=== PATIENT | male | born 1960 | race Caucasian/White ===

== ENCOUNTER 2017-01-29 10:52 | Day surgery (SDC) | payer OTHER ==
[2017-01-29] MEDS ORDERED: LACTATED RINGERS 1,000 ML IV ONE (12:20)
[2017-01-29] MEDS ORDERED: fentaNYL 250 MCG/5 ML VIAL IVP ONE (13:48)
[2017-01-29] MEDS ORDERED: MIDAZOLAM 2 MG/2 ML VIAL IVP ONE (13:48)
== END 2017-01-29 10:53 | disposition home or self-care (01) ==
PROC: 0DJD8ZZ Inspection of Lower Intestinal Tract, Via Natural or Artificial Opening Endoscopic (ICD-10-PCS; principal; 2017-01-29 12:15)
DX: Z12.11 Encounter for screening for malignant neoplasm of colon (principal); K57.30 Diverticulosis of large intestine without perforation or abscess without bleeding; E78.5 Hyperlipidemia, unspecified; I10 Essential (primary) hypertension; Z83.3 Family history of diabetes mellitus
CPT/HCPCS: 45378; 93005; J3010; J7120

== ENCOUNTER 2017-09-21 05:53 | Day surgery (SDC) | payer OTHER ==
[2017-09-21] MEDS ORDERED: LACTATED RINGERS 1,000 ML IV ONE ×3 (06:44→08:48)
--- NOTE | 2017-09-21 07:26 | HISTORY & PHYSICAL EXAMINATION ---
HPI - History of Present Illness HPI Comment/Other: Patient here for repair of elective incarcerated umbilical hernia containing fat. Current Meds: ATORVASTATIN CALCIUM 10 MG TABS (ATORVASTATIN CALCIUM) METOPROLOL TARTRATE 50 MG TABS (METOPROLOL TARTRATE) one tab po twice daily LISINOPRIL 20 MG TABS (LISINOPRIL) Take 1 tablet by mouth daily ASPIRIN 81 MG * GLUCOMETER TEST STRIPS use to check BS once daily * GLUCOMETER Check blood sugars once daily Allergies: Past Medical History: Reviewed history from 01/09/2017 and no changes required: NKDA Hyperlipidemia Hypertension Past Surgical History: Reviewed history from 01/09/2017 and no changes required: Unremarkable Family History Summary: Reviewed history Last on 03/03/2015 and no changes required:07/24/2017 Father () - Has Family History of Diabetes - Entered On: 01/09/2017 General Comments - FH: Mother: Alive, SE Father: age 65, melanoma, DMII 1 brother: Older, HTN Social History: Reviewed history from 03/31/2014 and no changes required: [employer] worker - job site superintendant. , 3 biological kids, 2 stepsons; one age 12. Quite a bit of stress with marriage secondary to the loss of his stepson at age 12 in 2006. Risk Factors: Smoked Tobacco Use: Never smoker Passive smoke exposure: no Caffeine use: 3 drinks per day Alcohol use: yes Type: beer Drinks per day: <1 Exercise: no Seatbelt use: 100 % Sun Exposure: occasionally Previous Tobacco Use: Signed On - 03/03/2015 Smoked Tobacco Use: Never smoker Passive smoke exposure: no Caffeine use: 3 drinks per day Problems were reviewed with the patient during this visit. Medications were reviewed with the patient during this visit. Allergies were reviewed with the patient during this visit. No known allergies. Physical Exam General: well developed, well nourished, in no acute distress Lungs: clear bilaterally to A & P Heart: regular rate and rhythm, S1, S2 without murmurs, rubs, gallops, or clicks Abdomen: Moderately sized incarcerated umbilical hernia. Non-tender to palpation. No surrounding skin changes. Protuberent abdomen Pulses: pulses normal in all 4 extremities Extremities: no clubbing, cyanosis, edema, or deformity noted with normal full range of motion of all joints Cervical Nodes: no significant adenopathy Psych: alert and cooperative; normal mood and affect; normal attention span and concentration Problems: Problems Added: 1) Dx of Umbilical hernia ([id number]) (ICD-553.1) Impression & Recommendations: Problem # 1: umbilical hernia Will proceed with umbilical hernia repair PMH/PSH - Past Medical History Cardiovascular: positive: Hypertension, High cholesterol, HI Respiratory: positive: None Endocrine/Autoimmune: positive: None GI: positive: None : positive: None HEENT: positive: None Psych: positive: None Musculoskeletal: positive: Osteoarthritis, Other Derm: positive: None MRSA Hx?: No - Past Surgical History General: positive: Colonoscopy Cardiovascular: positive: Cardiac catheterization Social & Family Hx - Social History Does the pt smoke?: No Smoking Status: Never smoker Does the pt drink ETOH?: Yes ETOH Use: Beer Does the pt have substance abuse?: No Meds/Allgy - Home Medications Home Medications: Ambulatory Orders Medication Instructions Recorded Confirmed Aspirin [Aspir-Low] 81 mg PO DAILY 03/03/16 09/08/17 Lisinopril 10 mg PO DAILY 03/03/16 09/08/17 Metoprolol Succinate 25 mg PO DAILY 03/03/16 09/08/17 Atorvastatin [Lipitor] 40 mg PO DAILY 01/29/17 09/08/17 - Allergies Allergies/Adverse Reactions: Allergies Allergy/AdvReac Type Severity Reaction Status Date / Time No Known Drug Allergies Allergy Verified 09/21/17 06:57 Exam - Vital Signs Vital Signs: Vital Signs x48h Temp Pulse Resp BP Pulse Ox 09/21/17 06:44 36.3 C L 68 14 129/83 H 97 Results - Lab Results Other Lab Results: Lab Results x24hrs 09/21/17 Range/Units 07:05 POC Whole Bld Glucose 138 H (70 - 100) mg/dL
[2017-09-21] MEDS ORDERED: ceFAZolin 2 GM/50 ML 2 GM/50 ML BAG IV ONE (07:28)
[2017-09-21] MEDS ORDERED: BUPIVACAINE 0.5% PF 30 ML VIAL INFIL ONE ×2 (07:35)
[2017-09-21] MEDS ORDERED: LIDOCAINE MPF 1%-EPI 1:200000 30 ML VIAL SUBQ ONE ×2 (07:35)
[2017-09-21] MEDS ORDERED: fentaNYL 100 MCG/2 ML VIAL IVP ONE (07:50)
[2017-09-21] MEDS ORDERED: ONDANSETRON 4 MG/2 ML VIAL IVP ONE (07:50)
[2017-09-21] MEDS ORDERED: MIDAZOLAM 2 MG/2 ML VIAL IVP ONE (07:50)
[2017-09-21] MEDS ORDERED: DEXAMETHASONE 4 MG/ML VIAL IVP ONE (07:50)
[2017-09-21] MEDS ORDERED: KETOROLAC 30 MG/ML VIAL IVP ONE (07:50)
[2017-09-21] MEDS ORDERED: LIDOCAINE-MPF 2% 5 ML VIAL IM ONE (07:50)
[2017-09-21] MEDS ORDERED: PROPOFOL 200 MG/20 ML VIAL IVP ONE (07:50)
[2017-09-21 09:26] VITALS: BP 122/70
--- NOTE | 2017-09-21 18:16 | OPERATIVE REPORT ---
DATE OF SURGERY: 09/21/2017 00:00:00 PREOPERATIVE DIAGNOSIS: POSTOPERATIVE DIAGNOSIS: NAME OF PROCEDURE: Umbilical hernia repair. SURGEON: Soledad Fields MD ANESTHESIA: INDICATION FOR PROCEDURE: This is a 57-year-old male with an incarcerated umbilical hernia containing fat, who was presenting for elective umbilical hernia repair. FINDINGS: After obtaining informed consent, the patient was brought into the operating room and posit ioned on the operating table in the supine position, taking note of pressure points. He was administe red perioperative antibiotics. He was intubated. He was prepped and draped in the usual sterile fashi on and a time-out was taken according to protocol. A supraumbilical 1.5 cm incision was created and d eepened down to the hernia sac. The hernia sac was noted to be very superficial in nature. It was car efully dissected off of the umbilical skin. The sac was dissected all the way down to the level of th e fascia. The hernia was subsequently reduced. It was noted to be containing fat. It was reduced easi ly. The hernia defect measured approximately 1 cm. The fascial edges anteriorly were cleared from johnna rounding fatty tissue. The hernia was then closed primarily with 2 [id number] 2-0 Prolene stitch es. The umbilical skin was then tacked to the anterior fascia. Then, 30 mL of local anesthetic was ad ministered. The incision was then closed with 4-0 Monocryl. Dermabond was applied. The patien t was extubated and taken to the recovery room in stable condition. He was provided with an abdominal binder. BLOOD LOSS: Minimal. COMPLICATIONS: None. SPECIMENS: None. JOB #: [id number] EXT JOB #:[id number]
== END 2017-09-21 05:54 | disposition home or self-care (01) ==
LOC: SDS 05:53
PROVIDERS: ATTEND Surgery
PROC: 0WQF0ZZ Repair Abdominal Wall, Open Approach (ICD-10-PCS; principal; 2017-09-21 07:30)
DX: K42.0 Umbilical hernia with obstruction, without gangrene (principal); I10 Essential (primary) hypertension; E78.5 Hyperlipidemia, unspecified; Z79.82 Long term (current) use of aspirin
CPT/HCPCS: 49587; J0690; J7120

== ENCOUNTER 2022-10-26 12:07 | Emergency (ER) | payer OTHER ==
[2022-10-26 14:09] LABS: CORONAVIRUS 229E-RESP PCR NOT DETECTED; CORONAVIRUS HKU1-RESP PCR NOT DETECTED; CORONAVIRUS NL63-RESP PCR NOT DETECTED; CORONAVIRUS OC43-RESP PCR NOT DETECTED; HUMAN METAPNEUMOVIRUS NOT DETECTED; INFLUENZA A H1 2009- RESP PCR DETECTED; RHINOVIRUS/ENTEROVIRUS NOT DETECTED; SARS-CoV-2 -RESP PCR PANEL NOT DETECTED
[2022-10-26 14:10] LABS: B. PARAPERTUSSIS- RESP PCR PAN NOT DETECTED; B. PERTUSSIS- RESP PCR PANEL NOT DETECTED; C. PNEUMONIAE- RESP PCR PANEL NOT DETECTED; INFLUENZA B - RESP PCR PANEL NOT DETECTED; M. PNEUMONIAE- RESP PCR PANEL NOT DETECTED; PARAINFLUENZA VIRUS 1 NOT DETECTED; PARAINFLUENZA VIRUS 2 NOT DETECTED; PARAINFLUENZA VIRUS 3 NOT DETECTED; PARAINFLUENZA VIRUS 4 NOT DETECTED; RSV- RESP PCR PANEL NOT DETECTED
--- NOTE | 2022-10-26 16:05 | ED Physician Documentation ---
PD HPI URI - Stated complaint Stated Complaint: WEAK, COUGH - Chief complaint Chief Complaint: Resp - History obtained from History obtained from: Patient - History of Present Illness Timing - onset: How many days ago (2) Timing duration: Days (2) Timing details: Abrupt onset, Still present Associated symptoms: Fever, Chills, Nasal congestion, Dry cough, Dyspnea. No: NVD Contributing factors: No: Sick contact, Travel, Immunocompromised, Unimmunized Improves by: No: Medication (nyquil/dayquil) Worsened by: Activity, Other (coughing) Similar symptoms before: Has not had sx before Recently seen: Not recently seen Review of Systems Constitutional: reports: Fever, Chills, Myalgias Nose: reports: Congestion. denies: Rhinorrhea / runny nose Throat: denies: Sore throat Cardiac: denies: Chest pain / pressure, Palpitations Respiratory: reports: Dyspnea, Cough GI: reports: Nausea. denies: Abdominal Pain, Vomiting, Diarrhea Skin: denies: Rash, Lesions Neurologic: reports: Headache. denies: Difficulty speaking, Altered mental status PD PAST MEDICAL HISTORY - Past Medical History Cardiovascular: Hypertension, High cholesterol, [place] Respiratory: None Neuro: None Endocrine/Autoimmune: Type 2 diabetes GI: None : None HEENT: None Psych: None Musculoskeletal: Osteoarthritis, Other Derm: None - Past Surgical History Past Surgical History: No General: Colonoscopy Cardiovascular: Cardiac catheterization - Present Medications Home Medications: Ambulatory Orders Medication Instructions Recorded Confirmed Aspirin [Aspir-Low] 81 mg PO DAILY 03/03/16 04/18/22 Lisinopril 5 mg PO DAILY 03/03/16 04/18/22 Metoprolol Succinate 25 mg PO DAILY 03/03/16 04/18/22 Atorvastatin [Lipitor] 40 mg PO DAILY 01/29/17 04/18/22 Melatonin 3 mg PO QPM 01/08/18 04/18/22 metFORMIN [Glucophage] 500 mg PO BIDWM 01/08/18 04/18/22 Hydroxyurea [Hydrea] 1,000 mg PO DAILY 04/18/22 04/18/22 Albuterol Sulf [Ventolin Hfa 1 - 2 puffs INH Q4HR PRN #1 each 10/26/22 Inhaler] Oseltamivir [Tamiflu] 75 mg PO BID #10 cap 10/26/22 - Allergies Allergies/Adverse Reactions: Allergies Allergy/AdvReac Type Severity Reaction Status Date / Time No Known Drug Allergies Allergy Verified 10/26/22 12:23 - Social History Does the pt smoke?: No Smoking Status: Never smoker Does the pt drink ETOH?: Yes Does the pt have substance abuse?: No - Immunizations Immunizations: Other immun current PD ED PE NORMAL - Vitals Vital signs reviewed: Yes - General General: Alert and oriented X 3, No acute distress, Well developed/nourished - Neck Neck: Supple, no meningeal sign, No adenopathy - Cardiac Cardiac: RRR, No murmur - Respiratory Respiratory: No respiratory distress. No: Clear bilaterally (no coarse sounds. Has end exp wheezes scattered. ) - Abdomen Abdomen: Soft, Non tender - Derm Derm: Normal color, Warm and dry - Extremities Extremities: No edema, No calf tenderness / cord - Neuro Neuro: Alert and oriented X 3, No motor deficit, No sensory deficit, Normal speech Results - Vitals Vitals: Oxygen O2 Source Room air - Labs Labs: Laboratory Tests 10/26/22 12:25 Nasal Adenovirus (PCR) NOT DETECTED Nasal B. parapertussis DNA (PCR) NOT DETECTED Nasal Coronavir 229E PCR NOT DETECTED Nasal Coronavir HKU1 PCR NOT DETECTED Nasal Coronavir NL63 PCR NOT DETECTED Nasal Coronavir OC43 PCR NOT DETECTED Nasal Enterovir/Rhinovir PCR NOT DETECTED Nasal Influ A H1 2009 PCR DETECTED A Nasal Influenza B PCR NOT DETECTED Nasal Parainfluen 1 PCR NOT DETECTED Nasal Parainfluen 2 PCR NOT DETECTED Nasal Parainfluen 3 PCR NOT DETECTED Nasal Parainfluen 4 PCR NOT DETECTED Nasal RSV (PCR) NOT DETECTED Nasal B.pertussis DNA PCR NOT DETECTED Nasal C.pneumoniae (PCR) NOT DETECTED Simon Human Metapneumo PCR NOT DETECTED Nasal M.pneumoniae (PCR) NOT DETECTED Nasal SARS-CoV-2 (PCR) NOT DETECTED PD Medical Decision Making - ED course Complexity details: reviewed results, considered differential (seems flu-like symptoms. No clinical indication of pneumonia. ), d/w patient Departure - Departure Disposition: 01 Home, Self Care Clinical Impression: Dyspnea, Fatigue, Influenza A virus subtype H1 2009 pandemic strain present Condition: Stable Record reviewed to determine appropriate education?: Yes Instructions: ED Flu Prescriptions: Albuterol Sulf [Ventolin Hfa Inhaler] 1 - 2 puffs INH Q4HR PRN #1 each PRN Reason: Shortness Of Air/Wheezing Oseltamivir [Tamiflu] 75 mg PO BID #10 cap Comments: You do have influenza A H1 type. This will account for your symptoms of the cough and shortness of breath and fatigue and fever and general weakness. It would be uncommon to lead to sepsis per se. You can certainly get ill with trouble breathing and cough and in particular with dehydration if you have vomiting or diarrhea. Small frequent fluids and regular diet. Watch her sugars twice daily as illness like this can sometimes affect your metabolism and your sugars go rather high. We can try to impact on the degree of illness with an antiviral called Tamiflu/oseltamivir. For your aches and fevers, use Tylenol and/or ibuprofen regularly over the next few days. We can help your cough and breathing with the butyryl inhaler 2 to 3 puffs 4 times daily and extra times if needed. Rest and try not to be too active over the next few days as he really will not likely have much reserve energy and just get tired. I would anticipate of likely 4-5 more days of illness at this point. I sent your prescriptions to [facility] pharmacy in [place]. Forms: Activity restrictions Discharge Date/Time: 10/26/22 16:58
[2022-10-26] MEDS ORDERED: ALBUTEROL 1 PUFF INH STA (16:19)
[2022-10-26] MEDS ORDERED: OSELTAMIVIR 75 MG CAPSULE PO STA (16:19)
[2022-10-26] MEDS ORDERED: ACETAMINOPHEN 325 MG TABLET PO STA (16:22)
[2022-10-26 16:54] VITALS: BP 138/80
== END 2022-10-26 16:58 | disposition home or self-care (01) ==
LOC: ED 12:07
DX: J10.1 Influenza due to other identified influenza virus with other respiratory manifestations (principal); R53.83 Other fatigue; R06.00 Dyspnea, unspecified; Z20.822 Contact with and (suspected) exposure to COVID-19; I10 Essential (primary) hypertension; E11.9 Type 2 diabetes mellitus without complications
CPT/HCPCS: 87633; 94640; 99283; 99284; A9270

== ENCOUNTER 2023-10-02 10:02 | Outpatient (CLI) | payer OTHER ==
[2023-10-02 12:26] LABS: BASOPHILS % (AUTO) 0.7 %; EOSINOPHILS % (AUTO) 0.2 %; HCT - HEMATOCRIT 49.1 % (42.0-52.0); HGB - HEMOGLOBIN 15.8 g/dL (14.0-18.0); LYMPHOCYTES # (AUTO) 1.1 10^3/uL (1.5-3.5); LYMPHOCYTES % (AUTO) 18.3 %; MEAN CORPUSCULAR HEMOGLOBIN 33.3 pg (27.0-31.0); MEAN CORPUSCULAR HGB CONC 32.2 g/dL (32.0-36.0); MEAN CORPUSCULAR VOLUME 103.6 fL (80.0-94.0); MEAN PLATELET VOLUME 10.5 fL (7.4-11.4); MONOCYTES # (AUTO) 0.2 10^3/uL (0.0-1.0); MONOCYTES % (AUTO) 3.9 %; NEUTROPHILS # (AUTO) 4.6 10^3/uL (1.5-6.6); NEUTROPHILS % (AUTO) 76.1 %; PLT - PLATELET COUNT 393 10^3/uL (130-450); RED BLOOD COUNT 4.74 10^6/uL (4.70-6.10); RED CELL DISTRIBUTION WIDTH 13.5 % (12.0-15.0)
[2023-10-02 13:02] LABS: ALBUMIN 4.8 g/dL (3.2-5.5); ALBUMIN/GLOBULIN RATIO 2.2 (1.0-2.2); ALKALINE PHOSPHATASE 44 IU/L (42-121); ALT ALANINE AMINOTRANSFERASE 21 IU/L (10-60); AST ASPARTATE AMINOTRANSFERASE 12 IU/L (10-42); BILIRUBIN,TOTAL 0.8 mg/dL (0.2-1.0); BUN - BLOOD UREA NITROGEN 17 mg/dL (6-20); CALCIUM 10.4 mg/dL (8.5-10.3); CARBON DIOXIDE - CO2 29 mmol/L (21-32); CHLORIDE 102 mmol/L (101-111); CHOL/HDL RATIO 2.7 (<5.0); CHOLESTEROL 104 mg/dL; ESTIMATED AVERAGE GLUCOSE 217 mg/dL (70-100); GFR - MDRD 75 (>89); GLUCOSE 272 mg/dL (74-104); HDL CHOLESTEROL 38 mg/dL; HEMOGLOBIN A1c% 9.2 % (4.27-6.07); LDL CHOLESTEROL,CALCULATED 48 mg/dL; LDL/HDL RATIO 1.3 (<3.6); POTASSIUM 4.9 mmol/L (3.5-4.5); SODIUM 137 mmol/L (135-145); TRIGLYCERIDES 89 mg/dL (48-352); VLDL CHOLESTEROL 18 mg/dL
[2023-10-02 13:05] LABS: THYROID STIMULATING HORMONE 1.33 uIU/mL (0.34-5.60)
== END 2023-10-02 10:03 | disposition home or self-care (01) ==
LOC: LAB.N 10:02
PROVIDERS: ATTEND Nurse Practitioner Family
DX: I10 Essential (primary) hypertension (principal); E11.9 Type 2 diabetes mellitus without complications; E78.5 Hyperlipidemia, unspecified; Z12.5 Encounter for screening for malignant neoplasm of prostate
CPT/HCPCS: 36415; 80053; 80061; 83036; 83721; 84153; 84443; 85025

== ENCOUNTER 2024-07-08 12:24 | Outpatient (CLI) | payer OTHER ==
[2024-07-08 18:26] LABS: CALCIUM 9.8 mg/dL (8.5-10.3); POTASSIUM 4.1 mmol/L (3.5-4.5)
[2024-07-08 21:08] LABS: ESTIMATED AVERAGE GLUCOSE 174 mg/dL (70-100); HEMOGLOBIN A1c% 7.7 % (4.27-6.07)
== END 2024-07-08 12:25 | disposition home or self-care (01) ==
LOC: LAB.N 12:24
PROVIDERS: ATTEND Nurse Practitioner Family
DX: E11.9 Type 2 diabetes mellitus without complications (principal)
CPT/HCPCS: 36415; 80048; 82043; 82570; 83036